=== PATIENT | female | born 1940 | race Caucasian/White ===

== ENCOUNTER → 2017-07-02 17:08 | Outpatient (CLI) | payer MEDICARE, OTHER ==
[2010-02-06 16:10] VITALS: BMI 28.2
== END | disposition home or self-care (01) ==
LOC: D.MAMMO 15:30
DX: Z12.31 Encounter for screening mammogram for malignant neoplasm of breast (principal)

== ENCOUNTER → 2018-07-03 16:46 | Outpatient (CLI) | payer MEDICARE, OTHER ==
[2010-02-06 16:10] VITALS: BMI 28.2
== END | disposition home or self-care (01) ==
LOC: D.MAMMO 13:30
DX: Z12.31 Encounter for screening mammogram for malignant neoplasm of breast (principal)

== ENCOUNTER 2018-08-24 08:00 | Outpatient (CLI) | payer MEDICARE, OTHER ==
[2010-02-06 16:10] VITALS: BMI 28.2
== END 2018-08-24 09:00 | disposition home or self-care (01) ==
LOC: D.MAMMO 08:00
DX: R92.8 Other abnormal and inconclusive findings on diagnostic imaging of breast (principal)